=== PATIENT | female | born 1980 | race Caucasian/White ===

== ENCOUNTER 2017-09-25 08:04 | Observation (INO) ==
[2017-09-25] MEDS ORDERED: ONDANSETRON 4 MG/2 ML INJECTION IVP ONE (08:22)
[2017-09-25] MEDS ORDERED: NS 1,000 ML IV ONE (08:22)
[2017-09-25] MEDS ORDERED: KETOROLAC 30 MG/ML INJECTION IVP ONE (08:24)
--- NOTE | 2017-09-25 08:35 | Emergency Department Report ---
Nausea/Vomiting/Diarrhea HPI - General Chief complaint: Nausea/Vomiting/Diarrhea Stated complaint: nausea/vomiting Time Seen by Provider: 09/25/17 08:12 Source: patient, RN notes reviewed, old records reviewed Mode of arrival: ambulatory Limitations: no limitations - History of Present Illness HPI Narrative: 37yo woman presents to the ER for evaluation of N/V/Abd Pain. Pt became nauseated and began vomiting around 0900 last night. Pt tried to take some OTC meds for relief, but threw it up. Has not been able to keep liquids or solids down since vomiting began. Pt ate supper at a [employer] restaurant last night. She thinks this may have been the cause - her ate off her plate and has not had sx; he does not think it is food poisoning. No one around the pt has similar sx. MD complaint: nausea, vomiting, abdominal pain Onset (ago): hour(s) (11) Description of Vomiting: food contents, watery Associated Abdominal Pain: Yes Location of pain: diffuse Severity: severe Severity scale (1-10): >10 Quality: cramping, stabbing, sharp Consistency: colicky Relieving factors: none Exacerbating factors: vomiting, movement Context: possible food poisoning Associated symptoms: denies other symptoms - Related Data Home Medications Medication Instructions Recorded Confirmed Diclofenac Potassium 50 mg PO TID 09/25/17 09/25/17 Pantoprazole Tab [Protonix Tab] 40 mg PO DAILY 09/25/17 09/25/17 Tramadol [Ultram] 50 mg PO QID PRN 09/25/17 09/25/17 Allergies Allergy/AdvReac Type Severity Reaction Status Date / Time No Known Drug Allergies Allergy Unknown Verified 09/25/17 09:28 Review of Systems All systems: reviewed and negative except as stated Gastrointestinal: Reports: as per HPI, abdominal pain, nausea, vomiting. Denies : diarrhea, constipation, hematemesis, melena, hematochezia [facility] Patient Stated Medical History Now No: MIRENA - Social History Smoking status: Unknown if ever smoked Physical Exam - Limitations Limitations: no limitations - General General appearance: alert, in no apparent distress - Normal Exams: Head:: Normocephalic without trauma Eyes:: Pupils are PERRLA w/ EOMI, No scleral icterus, irritation, or foreign bodies noted ENMT:: No facial trauma, nasal exudates, pharyngeal erythema, or exudates are noted Neck:: Full range of motion, without adenopathy Lymphatic:: No lymphadenopathy Musculoskeletal:: No tenderness, or deformity noted, good range of motion Integumentary:: No rashes, hives, or bruising noted Neurological:: Patient is alert, and oriented, cranial nerves, motor/sensory/ cerebellar, exams w/o gross deficits - Chest Chest inspection: Present: normal inspection, symmetric chest wall rise. Absent : tenderness, rash - Respiratory Respiratory exam: Present: normal lung sounds bilaterally. Absent: respiratory distress, wheezes, stridor, prolonged expiratory phase, crackles - Cardiovascular Cardiovascular exam: Present: regular rate, normal rhythm, normal heart sounds. Absent: rubs, gallop, clicks - Abdominal Exam Abdominal exam: Present: soft, tenderness, diminished bowel sounds (Absent BS). Absent: distention, guarding, rebound, rigidity, heel tap sign, Tello's sign , Rovsing's sign, tenderness at McBurney's Point Abdominal tenderness: Present: diffuse, severe - Psychiatric Psychiatric exam: Present: agitated, anxious Course - Consultations Consultation #1: Dr. Vaughn: Can remove the IUD, if pts uterus is tender. O/w no hard indications for removal. IUD is unlikely the cause of pts abrupt onset of N/V/ Abd pain. If pt is that uncomfortable, could admit to hospitalist and consult if still concerned for IUD as source of sx. Time: 10:47 Consultation #2: Hospitalist: Will admit obs for abd pain. Time: 10:53 Vital Signs Temperature 98.0 F 09/25/17 08:04 Pulse Rate 78 09/25/17 08:04 Respiratory Rate 22 09/25/17 08:04 Blood Pressure 152/79 H 09/25/17 08:04 Pulse Oximetry 100 09/25/17 08:04 Temperature 98.0 F 09/25/17 08:04 Pulse Rate 71 09/25/17 10:15 Respiratory Rate 26 H 09/25/17 09:17 Blood Pressure 149/70 H 09/25/17 10:00 Pulse Oximetry 100 09/25/17 10:15 Nausea/Vomiting/Diarrhea - Differential Diagnosis Likely: traveler's diarrhea, food poisoning, gastroenteritis, drug-induced nausea and vomiting, dehydration - Medical Records Attestation: I reviewed the patient's medical records. - Lab Data Attestation: I reviewed the patient's lab results. Result diagrams: 09/25/17 08:39 09/25/17 08:39 Lab Results 09/25/17 09/25/17 09/25/17 Range/Units 08:39 08:39 10:14 WBC 9.9 (4.5-11.0) T/MM3 RBC 4.40 (4.00-5.20) M/MM3 Hgb 14.5 (12-16) GM/DL Hct 41.4 (36-46) % MCV 94.1 (80-100) UM3 MCH 33.0 (26-34) UUG MCHC 35.0 (31-37) GM/DL RDW Std Deviation 41.5 (36.9-50.2) FL Plt Count 346 (130-400) T/MM3 MPV 10.5 (9.4-12.4) UM3 Immature Gran % (Auto) Not performed Neut % (Auto) Not performed Lymph % (Auto) Not performed [place] % (Auto) Not performed Eos % (Auto) Not performed Baso % (Auto) Not performed Neut # (Auto) Not performed Lymph # (Auto) Not performed [place] # (Auto) Not performed Eos # (Auto) Not performed Baso # (Auto) Not performed Abs Immat Gran (auto) Not performed Neutrophils % (Manual) 89.0 H (33-66) % Band Neutrophils % 3.0 (0-6) % Lymphocytes % (Manual) 5.0 L (23-45) % Monocytes % (Manual) 3.0 (0-9.0) % Neutrophils # (Manual) 8.8 H (1.8-7.7) T/MM3 Band Neutrophils # 0.3 T/MM3 Lymphocytes # (Manual) 0.5 L (1-4.8) T/MM3 Monocytes # (Manual) 0.3 (0-0.8) T/MM3 RBC Morph Comment Normal Turbidity < 20 (0-20) Sodium 144 (136-146) MEQ/L Potassium 4.0 (3.6-5) MEQ/L Chloride 106 (98-107) MEQ/L Carbon Dioxide 15 L (22-30) MEQ/L Anion Gap 23 H (5-15) meq/L BUN 17.0 (7-17) MG/DL Creatinine 0.6 L (0.7-1.2) mg/dL Estimated Creat Clear 129 (>50) mL/min GFR Calculation 114 (>60) mL/min BUN/Creatinine Ratio 28 H (6-26) RATIO Glucose 164 H (65-110) MG/DL Calculated Osmolality 283 H (261-280) MOSM/KG Calcium 10.8 H (8.4-10.2) MG/DL Total Bilirubin 1.60 H (0.20-1.30) MG/DL Icterus Index < 2 (0-7) AST 37 H (14-36) U/L ALT 47 H (1-35) U/L Alkaline Phosphatase 71 (38-126) U/L Total Protein 9.2 H (6.3-8.2) g/dL Albumin 5.7 H (3.5-5.0) g/dL Globulin 3.5 (2.4-3.6) G/DL Albumin/Globulin Ratio 1.6 (1.1-2.2) RATIO Lipase 73 (23-300) U/L Plasma Lactate 4.5 H* (0.6-2.2) MMOL/L Specimen Hemolysis < 15 (0-25) Ur Collection Type Urine, void-cc/notcc Urine Color Yellow (YELLOW) Urine Clarity Clear Urine pH 7.0 (5.0-8.0) Ur Specific Alt[place] 1.010 L (1.015-1.025) Urine Protein 1+ A (NEGATIVE) Urine Glucose (UA) Negative (NEGATIVE) Urine Ketones 3+ A (NEGATIVE) Urine Occult Blood Trace-lysed (NEGATIVE) Urine Nitrate Negative (NEGATIVE) Urine Bilirubin Negative (NEGATIVE) Urine Urobilinogen 0.2 (NORMAL) EU/DL Ur Leukocyte Esterase Negative (NEGATIVE) Urine RBC 1-3 (0-3) /HPF Urine WBC 3-5 (0-5) /HPF Ur Squamous Epith Cells >50 Urine Bacteria 2+ H (NEGATIVE) Urine Mucus Present Ur Culture Indicated? Cult not indicated - Radiology Data Attestation: I reviewed the patient's radiology results. KUB: Nonobstructing bowel gas pattern. No free air or fluid under the diaphragm. Large and small intestines appear mostly decompressed. Disposition Clinical Impression: Abdominal pain Qualifiers: Abdominal location: generalized Qualified Code(s): R10.84 - Generalized abdominal pain Disposition: 02 To OBS [facility] Print Language: Nepali Condition: Improved Prescriptions: No Action Diclofenac Potassium 50 mg PO TID Pantoprazole Tab [Protonix Tab] 40 mg PO DAILY Tramadol [Ultram] 50 mg PO QID PRN PRN Reason: Pain Referrals: Rosalba Virgen DO [Primary Care Provider] - Time of Disposition: 11:00 - Seen By: physician
[2017-09-25] MEDS: SALINE FLUSH 10ml SYRINGE IVF PRN ×4 (08:45→17:58)
[2017-09-25] MEDS ORDERED: PROCHLORPERAZINE 10 MG/2 ML INJECTION IVP ONE (09:07)
[2017-09-25] MEDS ORDERED: PIPERACILLIN/TAZOBACTAM 3.375 GM in NS 100 ML IV ONE (09:09)
[2017-09-25] MEDS ORDERED: IOHEXOL 300mg/ml 100ml INJECTION ONE (09:31)
[2017-09-25] MEDS: NS 1,000 ML IV SCH ×2 (11:11→12:29)
[2017-09-25 11:47] VITALS: BMI 26.9
[2017-09-25] MEDS ORDERED: PROCHLORPERAZINE 10 MG/2 ML INJECTION IVP PRN (11:52)
[2017-09-25] MEDS: ONDANSETRON 4 MG/2 ML INJECTION IVP PRN ×2 (12:00→17:56)
[2017-09-25] MEDS: PANTOPRAZOLE 40 MG INJECTION IVP SCH ×2 (12:28→21:40)
--- NOTE | 2017-09-25 12:28 | History & Physical Report ---
History of Present Illness Date: 09/25/17 Chief complaint: intractable nausea/vomiting, abdominal pain HPI: Hailee Hamlin is a pleasant 37-year-old patient of Dr. Virgen who presented to [facility] today, 09/25/17, for evaluation of severe abdominal pain with intractable nausea and vomiting. Her and children are present on exam and contribute to her history. Her reports that they were out to eat last night at a [employer] restaurant when she started to feel sick. He initially attributed her illness to her having a "couple of margaritas and a big meal" as she has reportedly had similar episodes of vomiting after large meals. She reports that she was feeling fine yesterday and denies any known bad food exposure, sick contacts or recent travel. Her reports that he ate "everything she ate" yesterday and is asymptomatic. Around 2100 last night she began vomiting with increasing abdominal pain and nausea. She has been unable to keep any liquids or solids down since she began vomiting. She presented to [facility] for further evaluation. Labs on admission revealed normal WBC at 9.9 with 3% bands. Electrolytes were unremarkable. AST and ALT were slightly elevated at 37 and 47 respectively with lipase normal at 73. T. bilirubin was elevated at 1.60 and lactate was critically elevated at 4.5. UA revealed 3+ ketones with contamination. CT abdomen/pelvis was unremarkable with the exception of penetration of the left arm of the IUD into the anterior uterine wall. No free fluid or air noted. Dr. Vaughn, [facility], was consulted and offered to remove the IUD if the patient's uterus was tender but otherwise, did not feel that the IUD was the source of her complaints. He recommended admitting to the hospitalist service for close monitoring and would be happy to consult if IUD remained a concern. Dr. Raza was consulted and the patient was admitted into observation status for further evaluation, close monitoring and IV hydration. Review of Systems All systems PM: 10-point ROS was reviewed, no additional remarkable complaints except - Constitutional Constitutional: Present: fatigue, weakness. Absent: chills, fever(s) - EENMT Eyes: Absent: diplopia, loss of vision, photophobia Ears: Absent: ear pain Balance: Absent: falling to one side Nose: Absent: nosebleeds Mouth/Throat: Present: dry mouth. Absent: sore throat, changes in swallowing - Cardiovascular Cardiovascular: Absent: chest pain, palpitations, syncope, dyspnea on exertion, orthopnea, edema, cyanosis Rhythm: Present: regular rhythm Vascular: Absent: pallor of an extermity, pedal edema, unilateral swelling - Respiratory Respiratory: Absent: cough, dyspnea, hemoptysis, dyspnea on exertion, wheezing - Gastrointestinal Gastrointestinal: Present: abdominal pain (generalized), nausea, vomiting. Absent: diarrhea, hematochezia, melena - Genitourinary Genitourinary: Absent: dysuria, flank pain, hematuria, pelvic pain Menstruation: other (IUD - placed ~02/2017.) - Musculoskeletal Musculoskeletal: Present: back pain (chronic), muscle weakness. Absent: deformity - Integumentary/Breasts Integumentary: Absent: rash - Neurological Neurological: Present: weakness (generalized). Absent: confusion, dizziness, focal weakness - Psychiatric Psychiatric: Absent: anxiety, depression - Endocrine Endocrine: Absent: cold intolerance, heat intolerance, palpitations - Hematologic/Lymphatic Hematologic/Lymphatic: Absent: easy bruising - Allergic/Immunologic Allergic/Immunologic: Absent: seasonal rhinorrhea Past Medical History Medical History: Medical History (Last Updated 09/25/17 @ 12:33 by TANVIR Babcock) Chronic low back pain Degenerative disc disease, lumbar MRI 04/14/17: L4-L5 disk protrusion with nerve root impingement and foraminal stenosis. GERD (gastroesophageal reflux disease) Surgical History: x 3 (2005, 2009, 2011) Family History: Mother - alive, arthritis. Father - alive, no known health concerns. 3 children, all living and reportedly healthy. Family History: As Above - Social History Smoking status: Former smoker (briefly as a young adult) Substance use type: does not use Alcohol intake frequency: a few times a week Last drink: days (ago) (1) Housing: house Household members: spouse, children Current occupational status: employed Does patient use chewing tobacco?: No Current residence: Apartment/Private Home Social history: PCP - Dr. Virgen. [facility] - Dr. Vaughn. Medications Home Medications Medication Instructions Recorded Confirmed Type Diclofenac Potassium 50 mg PO TID 09/25/17 09/25/17 History Pantoprazole Tab [Protonix Tab] 40 mg PO DAILY 09/25/17 09/25/17 History Tramadol [Ultram] 50 mg PO QID PRN 09/25/17 09/25/17 History Allergies Allergy/AdvReac Type Severity Reaction Status Date / Time No Known Drug Allergies Allergy Unknown Verified 09/25/17 09:28 Exam Vital Signs: Temperature 98.5 F 09/25/17 11:44 Pulse Rate 76 09/25/17 11:44 Respiratory Rate 24 09/25/17 12:01 Blood Pressure 158/78 H 09/25/17 11:44 Pulse Oximetry 100 09/25/17 11:44 Telemetry Rhythm: Sinus Rhythm Height/Weight/BMI: Height 5 ft 5 in Weight 161 lb 9.581 oz Body Mass Index 26.9 Comments: Patient is seen shortly after arrival to the medical floor with her , son and daughter present. She is sleeping and awakens easily with soft touch and voice stimuli. Appears drowsy. - Constitutional Present: no acute distress, well nourished, well developed, cooperative - Routine HEENT Exam Head: Present: normocephalic, atraumatic Eye: Present: PERRL. Absent: conjunctival icterus ENT: Present: mucous membranes dry, oropharynx clear, dentition normal - Routine Neck Exam Present: supple, full ROM, trachea midline - Routine Chest/Breast/Axilla Exam Chest wall: Absent: pacemaker - Routine Respiratory Exam Present: CTA bilaterally. Absent: respiratory distress, wheezes - Routine Cardiovascular Exam Present: RRR, S1, S2 - Routine Abdominal Exam Present: soft, normoactive bowel sounds, tenderness (generalized, mild), non distended. Absent: rebound, guarding - Routine Extremities Exam Present: no edema, non tender, full ROM, pulses intact - Routine Back/Spine/Pelvis Exam Back/Spine: Present: full ROM. Absent: CVA tenderness - Routine Skin Exam Present: intact, dry, warm Comments: Afebrile. - Routine Neurological Exam Present: alert, oriented X3, moving all extremities, hearing grossly intact, normal speech Appears drowsy - Routine Psychiatric Exam Present: cooperative Results - Labs CBC & Chem 7: 09/25/17 08:39 09/25/17 08:39 Microbiology Results: Microbiology 09/25/17 08:46 Peripheral/Iv Start Blood Culture - Preliminary Culture Initiated - Results Pending 09/25/17 08:40 Peripheral/Iv Start Blood Culture - Preliminary Culture Initiated - Results Pending Assessment and Plan Assessment and Plan: Assessment Acute abdominal pain Intractable nausea and vomiting Elevated lactate (4.5), present on admission Transaminitis, mild, present on admission Hyperbilirubinemia, present on admission Clinical dehydration GERD Chronic low back pain secondary to degenerative disc disease Plan Admit to observation status under the care of Dr. Raza. CT was relatively unremarkable with the exception of notation of left arm of IUD penetration in the anterior uterine wall. Results discussed with Dr. Vaughn who did not feel the patient's symptoms were related. Lactate 4.5 on admission. Monitor serial lactates. Patient afebrile with stable WBC. Continue to monitor closely. Will initiate Zosyn Q6H for antimicrobial coverage of suspected abdominal pathogens. Blood cultures pending. UA revealed 3+ ketones with significant contamination. Patient denies urinary symptoms. Consider repeating UA if urinary symptoms arise. Patient given 1L NS in ED. Will give an additional 1L NS for hydration. Patient received Toradol, Ativan, Zofran and Compazine in ED with improvement in symptoms and resolution of vomiting. Morphine PRN pain. Continue Zofran and Compazine PRN nausea. May consider scopolamine patch if nausea becomes difficult to manage. Recheck labs in AM to monitor blood counts, electrolytes and renal function. Consider stool culture if patient beings to have diarrhea. Full code per her requests. Care to return to Dr Rosa at time of discharge from [facility]. DVT Prophylaxis: SCD's GI Prophylaxis: Protonix Resuscitation Status: Full Code - Time spent with patient Time with patient PN: 50 minutes - Physician Narrative Physician: Dane Raza MD Narrative: Date: 09/25/17 Time: 1425 Have independently interviewed and examined pt. Chart reviewed. Case discussed with ED physician and my PA. Care plan developed with my supervision; agree with above. Presents to ED secondary to intratible nausea and vomiting. Was in typical state of jenelle (no GI symptoms, appetite normal, bowel function stable) when went out to eat last night. Ate large meal. Developed nausea and vomiting afterwards. No diarrhea. Nausea persistent and unrelenting. Having retching which is unrelenting. Not able to keep liquids or medications in. No blood in emesis that she is aware of. Feels hot and cold. Very sweaty. Notes upper epigastric pain. Does have diffuse ab wall pain from retching. Not around sick contacts. Breathing stable. No palpitations. Urine status stable. Evaluated in ER. Lab remarkable for elevated lactate without other indicators of sepsis or shock. IVF and antiemetic given with minimal relief. Placed in OBS status for further evaluation and care. Lungs: clear CV: regular AB: soft nd BS decreased MSE: awake alert Skin: warm and moist Gen: looks tired, weak, and ill Plan: OBS. Bowel rest - NPO (may have ice chips/sips for oral comfort). IVF to maintain hydration. IV Protonix for GI protection. Zosyn given in ED - will continue. Continue with nausea control; patient reports little help with Compazine, will change to Reglan prn and add Scopolamine patch. Monitor lab. Hospital Course Summary Disclaimer: The visit summary below is not to be considered part of the above Progress Note. Hospital Course: 09/25/17 Admit to observation status under the care of Dr. Raza. CT was relatively unremarkable with the exception of notation of left arm of IUD penetration in the anterior uterine wall. Results discussed with Dr. Vaughn who did not feel the patient's symptoms were related. Lactate 4.5 on admission. Monitor serial lactates. Patient afebrile with stable WBC. Continue to monitor closely. Will initiate Zosyn Q6H for antimicrobial coverage of suspected abdominal pathogens. Blood cultures pending. UA revealed 3+ ketones with significant contamination. Patient denies urinary symptoms. Consider repeating UA if urinary symptoms arise. Patient given 1L NS in ED. Will give an additional 2L NS bolus infusion and then continue with 1/2NS at 100cc/hr. Patient received Toradol, Ativan, Zofran and Compazine in ED with improvement in symptoms and resolution of vomiting. Morphine PRN pain. Continue Zofran PRN nausea. Compazine not helpful, trial of Reglan. Will initiate scopolamine patch. Recheck labs in AM to monitor blood counts, electrolytes and renal function. Consider stool culture if patient beings to have diarrhea. Full code per her requests. Care to return to Dr Rosa at time of discharge from [facility].
--- NOTE | 2017-09-25 13:43 | XRay Report ---
Indication: Abd pain XR acute abdomen series: Comparison: None Technique: Single film of the chest and supine and erect films of the abdomen Findings: Patient showed normal heart, mediastinum and central vascularity. Supine and erect films of the abdomen showed no free air or focal point of obstruction. No abnormal calcifications are noted. Patient shows an MARIANNA in place. Moderate stool seen in the right colon. Impression: 1. No active cardiopulmonary findings. 2. Nonspecific bowel gas pattern. .
--- NOTE | 2017-09-25 13:50 | CT Scan Report ---
Indication: Abd pain with elevated lactate CT abdomen pelvis w con: Comparison: Acute abdominal series earlier in the day Technique: Patient is scanned from above the diaphragm to below the pubic symphysis after approximately 90 cc Omni 300 intravenous contrast is utilized with dose reduction imaging technology and reformatted sagittal and coronal image planes. Findings: Heart size is unremarkable. Lung bases show no acute findings. Liver, spleen, gallbladder, biliary tree, pancreas, adrenals and both kidneys are all unremarkable. Stomach, small and large bowel showed no acute findings. No acute appendix abnormality appreciated. Patient shows an IUD in place. Patient demonstrated questionable positioning of the IUD. The left arm of the ureter IUD device may penetrate the anterior wall of the uterus. Patient shows a small follicular structures on the left ovary. No significant free fluid or free air seen in the abdomen or pelvis. Reformatted imaging demonstrates no acute bony abnormality. Patient did show degenerative changes at L4-5. Impression: 1. No upper abdominal abnormality appreciated. 2. Questionable penetration of the anterior wall of the uterus by the left arm of the IUD. 3. No significant amount of free fluid identified in the pelvis. 4. Findings communicated to the ordering clinician by the V rad service on a callback basis. .
[2017-09-25] MEDS: METOCLOPRAMIDE 10mg/2ml INJECTION IVP PRN (13:51)
[2017-09-25] MEDS: MORPHINE SULFATE 2mg INJECTION IVP PRN (13:54)
[2017-09-25] MEDS ORDERED: SCOPOLAMINE 1mg/3 days PATCH (Eq. 1.5 Patch) TD SCH (15:30)
[2017-09-25] MEDS: PIPERACILLIN/TAZOBACTAM 3.375 GM in NS 100 ML IV SCH ×2 (15:40→21:40)
[2017-09-25] MEDS: 1/2 NS 1,000 ML IV SCH (16:23)
[2017-09-26 00:07] VITALS: RESP 16; O2SAT 98
[2017-09-26] MEDS: ONDANSETRON 4 MG/2 ML INJECTION IVP PRN (01:05)
[2017-09-26] MEDS: MORPHINE SULFATE 2mg INJECTION IVP PRN ×2 (01:52→05:49)
[2017-09-26] MEDS: 1/2 NS 1,000 ML IV SCH (03:06)
[2017-09-26] MEDS: PIPERACILLIN/TAZOBACTAM 3.375 GM in NS 100 ML IV SCH ×2 (03:07→11:06)
[2017-09-26] MEDS: METOCLOPRAMIDE 10mg/2ml INJECTION IVP PRN (03:10)
[2017-09-26] MEDS ORDERED: HYDROMORPHONE 2 MG/ML INJECTION IVP ONE (06:49)
[2017-09-26 07:21] VITALS: BP 118/67; TEMP 97.3
[2017-09-26] MEDS: PANTOPRAZOLE 40 MG INJECTION IVP SCH (09:11)
[2017-09-26 09:48] VITALS: PULSE 79
--- NOTE | 2017-09-26 10:59 | Progress Note ---
- Date 09/26/17 Subjective: Hailee had a terrible night. Around 2300 she had a sharp and sudden onset of epigastric/RUQ pain accompanied by vomiting. This was shortly after she tried to eat a cracker. She then was awake for nearly the entire night. She received IV Dilaudid this morning which was more helpful than the morphine. She has been able to eat a few bites of broth and [place] ice this morning without pain or vomiting. Objective Vital signs: Temperature 97.3 F 09/26/17 07:20 Pulse Rate 79 09/26/17 08:51 Respiratory Rate 16 09/26/17 09:18 Blood Pressure 118/67 09/26/17 07:20 Pulse Oximetry 98 09/26/17 07:20 Height/Weight/BMI: Height 1.65 m Weight 73.4 kg Body Mass Index 26.9 - Constitutional Present: no acute distress, well nourished, well developed - Routine HEENT Exam Head: Present: normocephalic Eye: Present: PERRL. Absent: conjunctival icterus, scleral injection ENT: Present: mucous membranes moist, oropharynx clear - Routine Respiratory Exam Present: CTA bilaterally - Routine Cardiovascular Exam Present: RRR, S1, S2 - Routine Abdominal Exam Present: soft, normoactive bowel sounds, non distended, non tender. Absent: tenderness - Routine Extremities Exam Present: no edema - Routine Back/Spine/Pelvis Exam Back/Spine: Present: full ROM - Routine Musculoskeletal Exam Musculoskeletal: Present: no clubbing or cyanosis - Routine Skin Exam Present: intact, dry, warm - Routine Neurological Exam Present: alert, oriented X3, CN II-XII intact, moving all extremities, vision grossly intact, hearing grossly intact, normal speech. Absent: sensory deficit , motor deficit, altered mental status, facial asymmetry - Routine Psychiatric Exam Present: normal affect, normal thought process, cooperative Results - Labs CBC & Chem 7: 09/26/17 03:55 09/26/17 03:55 Microbiology Results: Microbiology 09/25/17 08:46 Peripheral/Iv Start Blood Culture - Preliminary No Growth After 1 Day 09/25/17 08:40 Peripheral/Iv Start Blood Culture - Preliminary No Growth After 1 Day Assessment and Plan Assessment and Plan: Assessment Acute abdominal pain Intractable nausea and vomiting Elevated lactate (4.5), present on admission Transaminitis, mild, present on admission Hyperbilirubinemia, present on admission Clinical dehydration GERD Chronic low back pain secondary to degenerative disc disease Plan Still requiring IV narcotics/antiemetics to control her symptoms. LFTs decreased but she continues to have an elevated total bilirubin. Check GB sono. K decreased to 3.1 & oral replacement has been ordered. Mg is stable. Continue Zosyn until we know results of GB sono. D/W Dr. Raza and with RN. DVT Prophylaxis: SCD's GI Prophylaxis: Protonix Resuscitation Status: Full Code - Physician Narrative Physician: Dane Raza MD Narrative: Date: 09/26/17 Time: 1458 Have independently interviewed and examined pt. Chart reviewed. Case discussed with CM, Dr Malhotra, and my PUBLIC EMPLOYMENT MEDIATOR. Care plan developed with my supervision; agree with above. Doing much better this afternoon. Ab pain and nausea resolved. Is able to eat soup and crackers without ab pain or nausea. Feeling much better. No f/c. Able to move well without discomfort. Breathing well. Does feel ready to go home. Lungs: clear bilaterally CV: regular AB: soft nt/nd BS decreased MSE: awake alert GEN: looks MUCH better than last night. US GB: normal Plan: With significant improvement of symptoms, do feel discharge to home reasonable. Uncertain exactly what caused her problems-possible food poisoning. Only etiology not completely excluded in PUD/Ulcer from NSAID use. Advised to try to decrease diclofenac use. Continue PPI-may use Gaviscon prn dyspepsia. Nausea resolved - would have patient continue to wear Scopolamine patch, removing on 09/29 (normal time to remove would be 09/28). She will watch for increased nausea - may use Zofran prn. Discussed case with Dr Malhotra due to malposition of IUD. Pt has apt in upcoming weeks and Dr Malhotra will discuss bout possible IUD removal at that time. Do NOT feel current symptoms due to his abnormality. May tentatively return to work on 09/28/17, baring return of symptoms. [place] diet, increasing as able. Plenty of water. Avoid alcohol. F/U with Dr Virgen in 1 week. See orders for details. Hospital Course Summary Disclaimer: The visit summary below is not to be considered part of the above Progress Note. Hospital Course: 09/25/17 Admit to observation status under the care of Dr. Raza. CT was relatively unremarkable with the exception of notation of left arm of IUD penetration in the anterior uterine wall. Results discussed with Dr. Vaughn who did not feel the patient's symptoms were related. Lactate 4.5 on admission. Monitor serial lactates. Patient afebrile with stable WBC. Continue to monitor closely. Will initiate Zosyn Q6H for antimicrobial coverage of suspected abdominal pathogens. Blood cultures pending. UA revealed 3+ ketones with significant contamination. Patient denies urinary symptoms. Consider repeating UA if urinary symptoms arise. Patient given 1L NS in ED. Will give an additional 2L NS bolus infusion and then continue with 1/2NS at 100cc/hr. Patient received Toradol, Ativan, Zofran and Compazine in ED with improvement in symptoms and resolution of vomiting. Morphine PRN pain. Continue Zofran PRN nausea. Compazine not helpful, trial of Reglan. Will initiate scopolamine patch. Recheck labs in AM to monitor blood counts, electrolytes and renal function. Consider stool culture if patient beings to have diarrhea. Full code per her requests. Care to return to Dr Rosa at time of discharge from [facility]. 09/26/17 Still requiring IV narcotics/antiemetics to control her symptoms. LFTs decreased but she continues to have an elevated total bilirubin. Check GB sono. K decreased to 3.1 & oral replacement has been ordered. Mg is stable. Continue Zosyn until we know results of GB sono. Doing much better this afternoon. Pain and nausea resolved. Able to eat soup and crackers without problems. GB sono normal. With significant improvement of symptoms, do feel discharge to home reasonable. Uncertain exactly what caused her problems-possible food poisoning. Only etiology not completely excluded in PUD/Ulcer from NSAID use. Advised to try to decrease diclofenac use. Continue PPI-may use Gaviscon prn dyspepsia. Nausea resolved - would have patient continue to wear Scopolamine patch, removing on 09/29 (normal time to remove would be 09/28). She will watch for increased nausea - may use Zofran prn. Discussed case with Dr Malhotra due to malposition of IUD. Pt has apt in upcoming weeks and Dr Malhotra will discuss bout possible IUD removal at that time. Do NOT feel current symptoms due to his abnormality. ACTIVITIES: As tolerated. May tentatively return to work on 09/28/17, baring return of symptoms. DIET: [place] diet, increasing as able. Plenty of water. Avoid alcohol. F/U with Dr Virgen in 1 week. See orders for details.
--- NOTE | 2017-09-26 13:15 | Ultrasound Report ---
EXAM: US gall bladder LOCATION OF DICTATION: [place] HISTORY: epigastric pain, n/v COMPARISON: September 25, 2017 FINDINGS: Hepatic parenchyma is homogeneous without evidence for focal mass. The liver is normal in size measuring 14.9 cm. The gallbladder is normal. There is no wall thickening, pericholecystic fluid, sonographic Tello's sign or cholelithiasis. Both the intra and extrahepatic biliary system are of normal caliber with the common duct measuring 4.3 mm in dimension. Visualized portions of the head and body of the pancreas are unremarkable. The right kidney is present without collecting system dilatation. The right kidney measures 12.5 cm in length. IMPRESSION: Normal right upper quadrant sonogram. .
--- NOTE | 2017-09-26 14:57 | Work/School Release ---
Work/School Release - Date Date: 09/26/17 - Work Release Remain off work/school for:: Hailee Hamlin was hospitalized at [facility] from 09/25/17 until 09/26/17. She may tentatively return to work on 09/28/17.
--- NOTE | 2017-09-26 15:16 | Discharge Summary ---
Discharge Information Date of admission: 09/25/17 11:04 Anticipated date of discharge: 09/26/17 Attending Physician: Dane Raza MD Primary care physician: Rosalba Virgen DO - Discharge Diagnosis (1) Abdominal pain Status: Acute (2) Intractable vomiting with nausea Status: Acute (3) Transaminitis Status: Acute Discharge diagnosis Acute abdominal pain Associated conditions and complication Intractable nausea and vomiting Elevated lactate (POA) - no evidence of sepsis or shock Transaminitis (POA) - resolved Hyperbilirubinemia (POA) Clinical dehydration Questionable penetration of the anterior wall of the uterus by the left arm of the IUD. Hypokalemia (Not POA) GERD Chronic low back pain secondary to degenerative disc disease - Laboratory Labs: Admit Lab 09/25/17 08:39 WBC 9.9 Hgb 14.5 Hct 41.4 MCV 94.1 Plt Count 346 Neutrophils % (Manual) 89.0 H Band Neutrophils % 3.0 Lymphocytes % (Manual) 5.0 L Monocytes % (Manual) 3.0 Admit Lab 09/25/17 08:39 Sodium 144 Potassium 4.0 Chloride 106 Carbon Dioxide 15 L Anion Gap 23 H BUN 17.0 Creatinine 0.6 L Estimated Creat Clear 129 GFR Calculation 114 BUN/Creatinine Ratio 28 H Glucose 164 H Calculated Osmolality 283 H Calcium 10.8 H Total Bilirubin 1.60 H AST 37 H ALT 47 H Alkaline Phosphatase 71 Total Protein 9.2 H Globulin 3.5 Albumin/Globulin Ratio 1.6 Lipase 73 Plasma Lactate 4.5 H* Repeat Lactate and Procalcitonin Lab 09/25/17 09/25/17 12:50 12:50 Plasma Lactate 1.2 Procalcitonin < 0.05 Repeat Liver Panel Lab 09/26/17 03:55 Total Bilirubin 1.60 H AST 31 ALT 34 Alkaline Phosphatase 54 Total Protein 8.4 H Albumin 5.3 H Globulin 3.1 Albumin/Globulin Ratio 1.7 09/26/17 03:55 09/26/17 03:55 - Microbiology Microbiology 09/25/17 08:46 Peripheral/Iv Start Blood Culture - Preliminary No Growth After 1 Day 09/25/17 08:40 Peripheral/Iv Start Blood Culture - Preliminary No Growth After 1 Day - Radiology Radiology: Date of Exam: 09/25/17 Type of Exam: XR acute abdomen series Findings: Patient showed normal heart, mediastinum and central vascularity. Supine and erect films of the abdomen showed no free air or focal point of obstruction. No abnormal calcifications are noted. Patient shows an MARIANNA in place. Moderate stool seen in the right colon. Impression: 1. No active cardiopulmonary findings. 2. Nonspecific bowel gas pattern. Date of Exam: 09/25/17 Type of Exam: CT abdomen pelvis w con Findings: Heart size is unremarkable. Lung bases show no acute findings. Liver, spleen, gallbladder, biliary tree, pancreas, adrenals and both kidneys are all unremarkable. Stomach, small and large bowel showed no acute findings. No acute appendix abnormality appreciated. Patient shows an IUD in place. Patient demonstrated questionable positioning of the IUD. The left arm of the ureter IUD device may penetrate the anterior wall of the uterus. Patient shows a small follicular structures on the left ovary. No significant free fluid or free air seen in the abdomen or pelvis. Reformatted imaging demonstrates no acute bony abnormality. Patient did show degenerative changes at L4-5. Impression: 1. No upper abdominal abnormality appreciated. 2. Questionable penetration of the anterior wall of the uterus by the left arm of the IUD. 3. No significant amount of free fluid identified in the pelvis. Date of Exam: 09/26/17 Type of Exam: US gall bladder FINDINGS: Hepatic parenchyma is homogeneous without evidence for focal mass. The liver is normal in size measuring 14.9 cm. The gallbladder is normal. There is no wall thickening, pericholecystic fluid, sonographic Tello's sign or cholelithiasis. Both the intra and extrahepatic biliary system are of normal caliber with the common duct measuring 4.3 mm in dimension. Visualized portions of the head and body of the pancreas are unremarkable. The right kidney is present without collecting system dilatation. The right kidney measures 12.5 cm in length. IMPRESSION: Normal right upper quadrant sonogram. History of Present Illness HPI: Hailee Hamlin is a pleasant 37-year-old patient of Dr. Virgen who presented to [facility] ED today, 09/25/17, for evaluation of severe abdominal pain with intractable nausea and vomiting. Her and children are present on exam and contribute to her history. Her reports that they were out to eat last night at a [employer] restaurant when she started to feel sick. He initially attributed her illness to her having a "couple of margaritas and a big meal" as she has reportedly had similar episodes of vomiting after large meals. She reports that she was feeling fine yesterday and denies any known bad food exposure, sick contacts or recent travel. Her reports that he ate "everything she ate" yesterday and is asymptomatic. Around 2100 last night she began vomiting with increasing abdominal pain and nausea. She has been unable to keep any liquids or solids down since she began vomiting. She presented to [facility] ED for further evaluation. Labs on admission revealed normal WBC at 9.9 with 3% bands. Electrolytes were unremarkable. AST and ALT were slightly elevated at 37 and 47 respectively with lipase normal at 73. T. bilirubin was elevated at 1.60 and lactate was critically elevated at 4.5. UA revealed 3+ ketones with contamination. CT abdomen/pelvis was unremarkable with the exception of penetration of the left arm of the IUD into the anterior uterine wall. No free fluid or air noted. Dr. Vaughn, CONTACT CENTER ASSISTANT, was consulted and offered to remove the IUD if the patient's uterus was tender but otherwise, did not feel that the IUD was the source of her complaints. He recommended admitting to the hospitalist service for close monitoring and would be happy to consult if IUD remained a concern. Dr. Raza was consulted and the patient was admitted into observation status for further evaluation, close monitoring and IV hydration. For complete details of the H&P refer to that document. Objective Vital signs: Temperature 97.3 F 09/26/17 07:20 Pulse Rate 79 09/26/17 08:51 Respiratory Rate 16 09/26/17 09:18 Blood Pressure 118/67 09/26/17 07:20 Pulse Oximetry 98 09/26/17 07:20 Height/Weight/BMI: Height 1.65 m Weight 73.4 kg Body Mass Index 26.9 Hospital Course This is a general summary of the patient's hospital course. For more details refer to the complete medical record. Hospital course: 09/25/17 Admit to observation status under the care of Dr. Raza. CT was relatively unremarkable with the exception of notation of left arm of IUD penetration in the anterior uterine wall. Results discussed with Dr. Vaughn who did not feel the patient's symptoms were related. Lactate 4.5 on admission. Monitor serial lactates. Patient afebrile with stable WBC. Continue to monitor closely. Will initiate Zosyn Q6H for antimicrobial coverage of suspected abdominal pathogens. Blood cultures pending. UA revealed 3+ ketones with significant contamination. Patient denies urinary symptoms. Consider repeating UA if urinary symptoms arise. Patient given 1L NS in ED. Will give an additional 2L NS bolus infusion and then continue with 1/2NS at 100cc/hr. Patient received Toradol, Ativan, Zofran and Compazine in ED with improvement in symptoms and resolution of vomiting. Morphine PRN pain. Continue Zofran PRN nausea. Compazine not helpful, trial of Reglan. Will initiate scopolamine patch. Recheck labs in AM to monitor blood counts, electrolytes and renal function. Consider stool culture if patient beings to have diarrhea. Full code per her requests. Care to return to Dr Virgen at time of discharge from [facility]. 09/26/17 Still requiring IV narcotics/antiemetics to control her symptoms. LFTs decreased but she continues to have an elevated total bilirubin. Check GB sono. K decreased to 3.1 & oral replacement has been ordered. Mg is stable. Continue Zosyn until we know results of GB sono. Doing much better this afternoon. Pain and nausea resolved. Able to eat soup and crackers without problems. GB sono normal. With significant improvement of symptoms, do feel discharge to home reasonable. Uncertain exactly what caused her problems-possible food poisoning. Only etiology not completely excluded in PUD/Ulcer from NSAID use. Advised to try to decrease diclofenac use. Continue PPI-may use Gaviscon prn dyspepsia. Nausea resolved - would have patient continue to wear Scopolamine patch, removing on 09/29 (normal time to remove would be 09/28). She will watch for increased nausea - may use Zofran prn. Discussed case with Dr Vaughn due to malposition of IUD. Pt has apt in upcoming weeks and Dr Vaughn will discuss bout possible IUD removal at that time. Do NOT feel current symptoms due to his abnormality. ACTIVITIES: As tolerated. May tentatively return to work on 09/28/17, baring return of symptoms. DIET: [place] diet, increasing as able. Plenty of water. Avoid alcohol. F/U with Dr Virgen in 1 week. See orders for details. Time spent with patient: discharge greater than 30 minutes Resuscitation Status: Full Code Discharge Plan - Discharge Disposition Discharge Date: 09/26/17 Disposition: 01 Discharged Home, Self-Care *Condition: Improved Reason For Visit (Visit label in EMR): ab pain - Discharge Medications *Discharge Medications: New RX: Scopolamine Patch Removal [Transderm-Scop Patch Removal] 1 removal TD Q3D patch RX: Ondansetron HCl 4 mg PO Q6HR PRN #10 tab PRN Reason: Nausea Mag Carb/Aluminum Hydrox/Algin [Gaviscon Liquid] 1 dose PO PRN PRN #1 bottle PRN Reason: Dyspepsia Continue RX: Diclofenac Potassium 50 mg PO TID RX: Pantoprazole Tab [Protonix Tab] 40 mg PO DAILY RX: Tramadol [Ultram] 50 mg PO QID PRN PRN Reason: Pain - Discharge Packet/Instructions *Diet: [place] diet, increase as able. Plently of water. Avoid alcohol. *Activity: As tolerated. May tentatively return to work on 09/28/17. *Pain Management/Treatment: May continue prior home pain medications, trying to minimize diclofenac. Tylenol safe to use. *Wound Care: n/a Additional Instructions: Continue scopolamine patch - can help decrease nausea. Remove on 09/29/17. Watch for increasing nausea on 09/28/17. May use Zofran ( ondansetron) as needed for nausea. Gavison can be helpful for upset stomach. *Expected Signs/Symptoms: Resolution of nausea and ab pain. *Notify Physician if: Temp >100.4. Intractable abdominal pain or nausea. *During Business Hours Contact: Dr Virgen *After Business Hours Contact: Call [facility] and have Dr Virgen contacted. *Pending Lab/Results: No Pending Lab - Referrals/Follow Up *Referrals/Follow Up: Bala Vaughn MD [Physician] - (Keep previously scheduled appointment. He will discuss about possible removing IUD due to it's placement. ) Rosalba Virgen DO [Primary Care Provider] - 1 Week (Hospital follow up for Ab pain and nausea/vomiting. ) - Patient Handouts - Dismissal Complete Discharge Instructions are:: Complete Physician Narrative - Narrative Physician: Dane Raza MD Attestation Narrative: Date: 09/26/17 Time: [id number] I have independently interviewed and examined patient prior to discharge. See my progress noted for details. Medically stable for discharge to home.
[2017-09-28] MEDS ORDERED: SCOPOLAMINE PATCH REMOVAL TD SCH (15:30)
== END 2017-09-26 15:40 | disposition home or self-care (01) ==
LOC: ED 08:04 → EDHOLD 08:04 → MED 11:35
PROVIDERS: ADMIT Hospitalist; ATTEND Hospitalist